=== PATIENT | female | born 1990 ===

== ENCOUNTER 2023-06-26 12:55 | Emergency (ER) | payer SELFPAY ==
[2023-06-26 12:58] VITALS: BP 130/79; BMI 18.6
[2023-06-26 13:27] LABS: Urine Albumin Negative (Neg - Trace); Urine Bilirubin Negative (Negative); Urine Character Clear (Clear); Urine Color Yellow; Urine Glucose Negative (Negative); Urine Ketone Negative (Negative); Urine Leukocyte Trace (Negative); Urine Nitrite Negative (Negative); Urine Occult Blood Negative (Negative); Urine Urobilinogen Negative (Neg - 1+)
[2023-06-26 13:33] LABS: % Eosinophils 3.1 % (0-6); % Immature Granulocytes 0.2 % (0-0.5); % Monocytes 11.5 % (1.7-9.3); % Neutrophils 67.2 % (42.2-75.2); Absolute Basophils 0.1 10^3/uL (0-0.2); Absolute Eosinophils 0.2 10^3/uL (0-0.7); Absolute Lymphocytes 0.8 10^3/uL (1.2-3.4); Absolute Monocytes 0.6 10^3/uL (0.1-0.6); Absolute Neutrophils 3.3 10^3/uL (1.4-6.5); Hematocrit 37.2 % (37.0-47.0); Hemoglobin 12.5 g/dL (12.0-16.0); Mean Corp Hgb Conc. 33.6 g/dL (33.0-37.0); Mean Corpuscular Hgb 29.1 pg (27.0-31.0); Mean Corpuscular Volume 86.5 fL (81.0-99.0); Mean Platelet Volume 9.4 fL (7.4-10.4); Nucleated Red Blood Cells % 0 %; Platelet Count 256 10^3/uL (130-400); Red Cell Dist. Width 12.1 % (11.5-14.5); White Blood Cell Count 4.9 10^3/uL (4.8-10.8)
[2023-06-26 13:34] LABS: Urine Squamous Cell >30 /LPF (Few)
[2023-06-26 13:35] LABS: Urine Bacteria Few (Negative); Urine Red Blood Cell 0-2 /HPF (0-2)
[2023-06-26 13:48] LABS: HCG, Serum Qualitative Screen Negative
[2023-06-26 14:00] LABS: ALT (SGPT) 25 U/L (0-35); AST (SGOT) 31 U/L (14-36); Albumin 3.9 g/dl (3.5-5.0); Alkaline Phosphatase 92 U/L (38-126); Blood Urea Nitrogen 13 mg/dl (7-17); Calcium 8.7 mg/dl (8.4-10.2); Carbon Dioxide 24 mmol/L (22-30); Chloride 103 mmol/L (98-107); Estimated Creatinine Clearance 119 ml/min; Glucose 94 mg/dl (70-99); Lipase 84 U/L (23-300); Potassium 4.2 mmol/L (3.5-5.1); Sodium 133 mmol/L (135-145); Total Bilirubin 0.8 mg/dl (0.2-1.3); Total Protein 6.6 g/dl (6.3-8.2); eGFR > 60.00
--- NOTE | 2023-06-26 14:36 | ED.GENMED ---
History of Present Illness
General
Chief Complaint: Abdominal Symptoms
Time Seen by Provider: 06/26/23 14:22
Travel History
Have you had any contact with someone who has COVID-19?: No
Do you have any symptoms of coronavirus? Fever > 100 degrees, chills, cough, shortness of breath, sore throat, loss of taste or smell, muscle aches, or headache?: No
History of Present Illness
History of Present Illness:
Patient is a 32-year-old female with past medical history of pelvic floor dysfunction, IBS, anxiety, and depression, here today for evaluation of several months of intermittent episodes of abdominal discomfort. She reports worsening pain more
recently. Pain is lower in nature specifically around the groin. She also endorses enlarged lymph nodes in her groin and has been constipated over the past few days. She did have a small bowel movement earlier today. The patient does report a
history of IBS but she is not typically constipated where she is not able to have a bowel movement. Patient also reports nonspecific symptoms over the past couple of months to years including extreme fatigue, canker sores in her mouth, insomnia,
and joint pain. She reports she was following with a nurse practitioner previously and she was being evaluated for lupus and other rheumatological conditions. Patient reports her clinician left and she is currently looking for a primary care
provider and proj engineer. The patient also reports a longstanding history of inflammatory bowel conditions in her family but she denies being diagnosed with a specific condition herself. No recent colonoscopy. She does not currently follow
with GI.
Past History
Past History
ED Past Medical History: Psychiatric
ED Past Surgical History: Orthopedic
Patient has exhibited threatening behavior?: No
PSI?: No
Social History
Tobacco: Vaping
Alcohol: Occasional
Drug: None
Personal: Single
Living: alone
Employment: Employed
Review of Systems
Review of Systems
All Other Systems: ROS reviewed and negative except as documented in HPI and ROS
Phy Exam
Physical Exam
Physical Exam:
GENERAL: Alert , in no apparent distress
EYE: pupils equal and reactive
NECK: Supple, no significant adenopathy.
ENT: o/p clr, mmm. Small canker sore along the inside of the patient's lower lip
CARDIAC: Regular rate and rhythm .
LUNGS: Clear breath sounds bilaterally, no acute respiratory distress, no wheezes/rales/rhonchi
ABDOMEN: Soft, mild tenderness in the right lower quadrant upon initial palpation, however, on repeat palpitation the tenderness is not present, no r/g, no cvat; there are small scattered lymph nodes noted along the bilateral inguinal regions
NEUROLOGICAL: Alert and oriented, no focal neuro deficits
SKIN: Warm and dry, skin intact.
MUSCULOSKELETAL: No edema, well perfused.
PSYCH: Normal and appropriate interaction.
Course
Orders/Labs/Results
Orders:
Orders
06/26/23 13:04
Test Result ONCE
06/26/23 13:14
Complete Blood Count/With Diff Urgent
Comprehensive Metabolic Panel Urgent
HCG, Serum Qualitative Screen Urgent
Lipase Urgent
06/26/23 13:19
Urinalysis Reflex To Culture Urgent
Date Specimen was Collected: 06/26/23
Time Specimen was Collected: 13:04
Urine Microscopic Reflex Cult Urgent
06/26/23 13:47
Electrocardiogram (*1) Stat
Comment: ALREADY DONE
06/26/23 14:34
CT Abd/pel W Iv And Oral Contr Urgent
Comment:
Reason For Exam: lower abd pain, lack of bowel movements
Iohexol [Omnipaque] See Protocol PO NOW STA
Abnormal Lab Results
06/26/23 06/26/23
13:14 13:19
Absolute Lymphs (auto) 0.8 L 10^3/uL
(1.2-3.4)
Lymphocytes % 17.0 L %
(20.5-51.1)
Monocytes % 11.5 H %
(1.7-9.3)
Sodium 133 L mmol/L
(135-145)
Leukocyte Esterase Rfl Trace A
(Negative)
Urine Bacteria (Reflex) Few A
(Negative)
06/26/23 13:14
06/26/23 13:14
Vital Signs
Initial and Last Documented VS:
Initial Vital Signs
Temp Pulse Resp BP Pulse Ox
97.8 F 109 20 130/79 100
06/26/23 12:58 06/26/23 12:58 06/26/23 12:58 06/26/23 12:58 06/26/23 12:58
Last Documented Vital Signs
Temp Pulse Resp BP Pulse Ox
98.3 F 92 20 125/88 98
06/26/23 19:47 06/26/23 19:47 06/26/23 19:47 06/26/23 19:47 06/26/23 19:47
MDM/Problems Addressed
Differential Diagnosis Includes:
Patient is a 32-year-old female with past medical history of pelvic floor dysfunction, IBS, anxiety, and depression, here today for evaluation of several months of intermittent episodes of abdominal discomfort associated with worsening symptoms more
recently including worsening pain and constipation. Patient presents here today as she is concerned for a bowel obstruction. No prior abdominal surgeries. Overall, patient appears very well. Physical examination described above. We will obtain
screening labs, urinalysis, urine test, and CT of the abdomen and pelvis with IV and oral contrast. NPO.
06/26/2023 20:10: Screening labs grossly within normal limits aside from mild hyponatremia with a sodium of 133. CT scan of the abdomen and pelvis with IV contrast reveals intussusception in the mid abdomen. No free air. No fluid collection or
abscess. There is also a large amount of stool throughout the colon consistent with constipation. Case was discussed with general surgery, Dr. Alonzo, who feels findings are incidental from normal peristalsis. No surgical intervention
recommended. They recommended discussion with GI. Case was discussed with gastroenterology, Dr. Sarkar, who reviewed history. GI states they can evaluate patient in the morning and to keep her n.p.o. I discussed with patient at bedside
recommendations for being admitted to the hospital and close monitoring of her symptoms. Patient declined and did not want to be admitted to the hospital. Risks discussed in full detail. Patient would prefer to monitor her symptoms and follow-up
closely with her doctor and GI. Patient will be discharged at this time with recommendations to closely follow-up. She was provided with very strict return precautions for worsening symptoms. All questions answered. Stable for discharge.
Risks/potential complications discussed in full detail and patient voiced understanding.
*Critical Care Note
Total Time (30-74mins, 75-104mins- exclusive of procedures): Not Applicable
ED Attending Note
-
Portions of this chart may have been created with voice recognition software.� Occasional wrong word or��sound alike� substitutions may have occurred due to the inherent limitations of voice recognition software.
Discharge Plan
Departure
Patient Disposition: Home (Routine Discharge)
Date of Disposition: 06/26/23
Time of Disposition: 19:33
Patient with high blood pressure during this ER visit?: No
Condition: Good
Covid-19: Not Applicable
Discharge Problem:
Abdominal pain, Colonic intussusception, Constipation, Lymphadenopathy
Instructions: Intussusception (DC), Abdominal Pain
Prescriptions:
New
senna 8.6 mg capsule
17.2 mg PO DAILY 7 Days Qty: 14 0RF
docusate calcium 240 mg capsule
240 mg PO DAILY 7 Days Qty: 7 0RF
No Action
amoxicillin 500 MG capsule
500 mg PO BID Qty: 20 0RF
methylprednisolone [Medrol (Elvis)] 4 MG tablets,dose pack
4 tab PO . DIRECT Qty: 1 0RF
Referrals:
Yuli Sarkar MD [Active] - Follow up in 5-7 days
Domenic Alonzo MD [Active] - Follow up in 5-7 days
Arvin Beltran MD [Family Provider] - Follow up in 5-7 days
Activity Restrictions/Additional Instructions:
You were seen today for evaluation of abdominal discomfort.
We performed a CAT scan of your abdomen and pelvis which reveals the following:
1. � Intussusception in the mid abdomen. No free air. No fluid collection or abscess.
2. � The examination is severely limited due to the patient's lack of intraperitoneal fat
3. � Large amount stool throughout the colon consistent with constipation. Appendix not visualized.
We discussed your case with general surgery and gastroenterology and recommended admission to the hospital but you declined.
Monitor your symptoms and closely follow-up with your family doctor, general surgery, and gastroenterology as an outpatient.
Return for any new, worsening, or concerning symptoms.
Interventions
Interventions:
*Risk Screen - Suicide Last Done: 06/26/23 12:58
*Neglect/Abuse Screening Last Done: 06/26/23 12:58
ED- Fall Risk Assessment Last Done: 06/26/23 19:47
*ED COVID-19 Vaccine History Last Done: 06/26/23 12:58
RV-Ytdrdz-Zuiikfveux Assessment Last Done: 06/26/23 19:47
Discharge Date and Time
Print Language: MOHAWK
[2023-06-26] MEDS: OMNIPAQUE 50 ML PO (14:45)
[2023-06-26 18:14] VITALS: BP 117/84
[2023-06-26 19:47] VITALS: BP 125/88
== END 2023-06-26 19:50 | disposition home or self-care (01) ==
LOC: EMR 12:55
PROVIDERS: Emergency Medicine; EMERGENCY PHYSICIAN Emergency Medicine; FAMILY PHYSICIAN Internal Medicine
DX: R10.30 Lower abdominal pain, unspecified (principal); K56.1 Intussusception; K59.00 Constipation, unspecified; R59.1 Generalized enlarged lymph nodes; F17.290 Nicotine dependence, other tobacco product, uncomplicated; K58.9 Irritable bowel syndrome, unspecified
CPT/HCPCS: 99285; 74177; 80053; 81003; 81015; 83690; 84703; 85025; 93005; Q9967

== ENCOUNTER → 2023-07-16 06:25 | Day surgery (SDC) | payer SELFPAY | LOC: GI 06:25 | PROVIDERS: ATTENDING PHYSICIAN Internal Medicine Gastroenterology; FAMILY PHYSICIAN Nurse Practitioner | DX: D12.0 Benign neoplasm of cecum (principal); R19.4 Change in bowel habit | CPT/HCPCS: 45385; 88305 ==

== ENCOUNTER 2023-07-27 20:12 | Emergency (ER) | payer SELFPAY ==
[2023-07-27 20:14] VITALS: BP 136/95
[2023-07-27 21:09] VITALS: BMI 19.2
[2023-07-27 22:28] VITALS: BP 122/88
--- NOTE | 2023-07-27 22:28 | ED.SKININJ ---
HPI-Injury
General
Chief Complaint: Ear Problem
Source: patient
Exam Limitations: none
Time Seen by Provider: 07/27/23 20:30
Nursing documentation reviewed up to this point in time: agreed with
Travel History
Have you had any contact with someone who has COVID-19?: No
Do you have any symptoms of coronavirus? Fever > 100 degrees, chills, cough, shortness of breath, sore throat, loss of taste or smell, muscle aches, or headache?: No
History of Present Illness-Injury
Is this injury a work related problem?: No
Is pt an associate of [facility]?: No
Initial Injury comments:
Patient to ED for eval of pain and swelling to posterior earlobes bilaterally. States she was evaluated at this week and placed on clindamycin 300mg bid. This is her 3rd day. Notes drainage from both sites. No fever/chills, recent illness.
Brought self to ED for eval.
Past History
Past History
ED Past Medical History: Psychiatric
ED Past Surgical History: Orthopedic
Patient has exhibited threatening behavior?: No
PSI?: No
Social History
Tobacco: Vaping
Alcohol: Occasional
Drug: None
Personal: Single
Living: alone
Employment: Employed
Review of Systems
Review of Systems
Allergies reviewed?: Yes
All Other Systems: ROS reviewed and negative except as documented in HPI and ROS
Constitutional: Reports no symptoms
EENT: Reports no symptoms
Musculoskeletal: Reports no symptoms
Skin: Reports other (skin abscess to left posterior earlobe. Resolved abscess right posterior earlobe)
Neurological: Reports no symptoms
Psychiatric: Reports no symptoms
Skin Exam
Abscess
Left poserior earlobe:
Description of abscess: draining
Surrounding skin:: inflammed at abscess site
other
Other:
Right posterior earlobe without redenss swelling or drainage. Abscess/cellulitis has resolved
Phy Exam
General Physical Exam
General Presentation: well appearing and no apparent distress
General age: appears stated age
General Skin: warm and dry
General Habitus: normal
General Mental: alert
Musculoskeletal Exam
Musculoskeletal Exam: full ROM and neuro vasc intact
Skin Exam
Skin Exam: normal color, warm/dry and no rash
Psychiatric Exam
Psychiatric Exam: normal mood/affect
Course
Orders/Labs/Results
Orders:
Orders
07/27/23 22:24
Wound Culture [Wound/Abscess/Other Culture] Urgent
GIGI Source: Abscess
Specimen Description:
Date Specimen was Collected: 07/27/23
Time Specimen was Collected: :21
Vital Signs
Initial and Last Documented VS:
Initial Vital Signs
Temp Pulse Resp BP Pulse Ox
99.0 F 104 16 136/95 99
07/27/23 20:14 07/27/23 20:14 07/27/23 20:14 07/27/23 20:14 07/27/23 20:14
Last Documented Vital Signs
Temp Pulse Resp BP Pulse Ox
99.0 F 99 16 122/88 97
07/27/23 20:14 07/27/23 22:28 07/27/23 22:28 07/27/23 22:28 07/27/23 22:28
*Critical Care Note
Total Time (30-74mins, 75-104mins- exclusive of procedures): Not Applicable
Update Note
Update Note:
Case discussed with Dr. Dolan who also evaluated this patient. Lef posterior earlobe drained at bedside by dr. Dolan. Will continue clindamycin as prescribed, warm compresses 4-5 times daily. She has an appointment scheduled with
dermatology howver will return to ED for any changes in/worsening of her symptoms.
ED Attending Note
-
Portions of this chart may have been created with voice recognition software.� Occasional wrong word or��sound alike� substitutions may have occurred due to the inherent limitations of voice recognition software.
Discharge Plan
Departure
Patient Disposition: Home (Routine Discharge)
Date of Disposition: 07/27/23
Time of Disposition: 22:14
Patient with high blood pressure during this ER visit?: No
Condition: Good
Covid-19: Not Applicable
Discharge Problem:
Abscess of skin
Instructions: Skin Abscess
Prescriptions:
No Action
Linzess 145 mcg Capsule
145 mcg PO DAILY
clindamycin HCl
1 tab PO BID
Patient Comments:
pt unsure of mg - on day four of 10 day prescription
Referrals:
Jenna Waite CRNP [Family Provider] -
Activity Restrictions/Additional Instructions:
Continue the clindamycin as prescribed. Warm compresses to the back of your ear 15-20 minutes at a time, 4-5 times daily. Return to the emergency department immediately for any changes in/worsening of your symptoms.
Interventions
Interventions:
*Risk Screen - Suicide Last Done: 07/27/23 20:14
*General Assessment Last Done: 07/27/23 20:14
*Neglect/Abuse Screening Last Done: 07/27/23 20:14
*ED COVID-19 Vaccine History Last Done: 07/27/23 21:09
*Nursing Disposition Last Done: 07/27/23 22:28
Discharge Date and Time
Discharge Date/Time: 07/27/23 22:28
Print Language: [place]
== END 2023-07-27 22:28 | disposition home or self-care (01) ==
LOC: EMR 20:12
PROVIDERS: EMERGENCY PHYSICIAN Emergency Medicine; FAMILY PHYSICIAN Nurse Practitioner
DX: H60.02 Abscess of left external ear (principal)
CPT/HCPCS: 99284; 69000; 87070; 87147; 87186; 87205

== ENCOUNTER → 2023-07-29 10:43 | Outpatient (REF) | payer SELFPAY | LOC: WDC 10:43 | PROVIDERS: ATTENDING PHYSICIAN Nurse Practitioner Family; FAMILY PHYSICIAN Nurse Practitioner | DX: N63.10 Unspecified lump in the right breast, unspecified quadrant (principal); N63.31 Unspecified lump in axillary tail of the right breast | CPT/HCPCS: 76642; 77062; 77066 ==

== ENCOUNTER 2023-08-03 14:50 | Emergency (ER) | payer SELFPAY ==
[2023-08-03 14:58] VITALS: BP 115/81
[2023-08-03 17:18] LABS: % Basophils 0.9 % (0-2); % Eosinophils 2.2 % (0-6); % Immature Granulocytes 0.1 % (0-0.5); % Lymphocytes 23.2 % (20.5-51.1); % Monocytes 9.2 % (1.7-9.3); % Neutrophils 64.4 % (42.2-75.2); Absolute Basophils 0.1 10^3/uL (0-0.2); Absolute Eosinophils 0.2 10^3/uL (0-0.7); Absolute Lymphocytes 1.6 10^3/uL (1.2-3.4); Absolute Monocytes 0.6 10^3/uL (0.1-0.6); Absolute Neutrophils 4.3 10^3/uL (1.4-6.5); Hematocrit 37.4 % (37.0-47.0); Hemoglobin 13.5 g/dL (12.0-16.0); Mean Corp Hgb Conc. 36.1 g/dL (33.0-37.0); Mean Corpuscular Hgb 29.5 pg (27.0-31.0); Mean Corpuscular Volume 81.7 fL (81.0-99.0); Nucleated Red Blood Cells % 0 %; Platelet Count 294 10^3/uL (130-400); Red Blood Cell Count 4.58 10^6/uL (4.20-5.40); Red Cell Dist. Width 11.9 % (11.5-14.5); White Blood Cell Count 6.7 10^3/uL (4.8-10.8)
[2023-08-03 17:25] LABS: Urine Albumin Negative (Neg - Trace); Urine Bilirubin Negative (Negative); Urine Character Clear (Clear); Urine Color Straw; Urine Glucose Negative (Negative); Urine Ketone Negative (Negative); Urine Leukocyte 2+ (Negative); Urine Nitrite Negative (Negative); Urine Occult Blood Negative (Negative); Urine Urobilinogen Negative (Neg - 1+)
[2023-08-03 17:28] LABS: HCG, Serum Qualitative Screen Negative
[2023-08-03 17:30] LABS: Amphetamines Positive (Negative); Barbiturates Negative (Negative); Benzodiazepines Negative (Negative); Buprenorphine Negative (Negative); Cocaine Negative (Negative); Marijuana Negative (Negative); Methadone Negative (Negative); Methamphetamines Positive (Negative); Opiates Negative (Negative); Phencyclidine Negative (Negative); Tricyclic Antidepressants Negative (Negative)
[2023-08-03 17:32] LABS: COVID-19 Antigen Negative (Negative)
[2023-08-03 17:33] LABS: Urine Bacteria Few (Negative); Urine Red Blood Cell 0-2 /HPF (0-2); Urine Squamous Cell >20 /LPF (Few)
[2023-08-03 17:38] LABS: ALT (SGPT) 27 U/L (0-35); AST (SGOT) 32 U/L (14-36); Albumin 4.8 g/dl (3.5-5.0); Alkaline Phosphatase 93 U/L (38-126); Blood Urea Nitrogen 14 mg/dl (7-17); Calcium 9.8 mg/dl (8.4-10.2); Carbon Dioxide 28 mmol/L (22-30); Chloride 103 mmol/L (98-107); Glucose 99 mg/dl (70-99); Potassium 3.9 mmol/L (3.5-5.1); Sodium 137 mmol/L (135-145); Total Bilirubin 1.1 mg/dl (0.2-1.3); Total Protein 7.9 g/dl (6.3-8.2); eGFR > 60.00
[2023-08-03 17:39] LABS: Alcohol None Detected
[2023-08-03 17:50] LABS: Fentanyl, Urine Negative (Negative)
[2023-08-03 19:31] VITALS: BP 112/79
[2023-08-03 20:13] LABS: TSH Reflex To Free T4 3.57 uIU/ml (0.47-4.68)
--- NOTE | 2023-08-03 21:35 | ED.GENMED ---
History of Present Illness
General
Chief Complaint: Skin Problem
Source: patient and family
Exam Limitations: none
Time Seen by Provider: 08/03/23 15:54
Nursing documentation reviewed up to this point in time: agreed with
Travel History
Have you had any contact with someone who has COVID-19?: No
Do you have any symptoms of coronavirus? Fever > 100 degrees, chills, cough, shortness of breath, sore throat, loss of taste or smell, muscle aches, or headache?: No
History of Present Illness
History of Present Illness:
see dmdm
Past History
Past History
ED Past Medical History: Psychiatric
ED Past Surgical History: Orthopedic
Patient has exhibited threatening behavior?: No
PSI?: No
Social History
Tobacco: Vaping
Alcohol: Occasional
Drug: None
Personal: Single
Living: alone
Employment: Employed
Review of Systems
Review of Systems
Allergies reviewed?: Yes
All Other Systems: Not applicable
Phy Exam
Physical Exam
Physical Exam:
GENERAL: Alert , malnourished, thin, sunken cheek bones
HEAD: NCAT
EYE: pupils equal and reactive, no nystagmus, no photophobia
NECK: Supple,full rom, nontender
ENT: o/p clr, mmm.
CARDIAC: Regular rate and rhythm . no edema
LUNGS: Clear breath sounds bilaterally, no acute respiratory distress, no wheezes/rales/rhonchi
ABDOMEN: Soft, without focal tenderness, no r/g, no cvat
NEUROLOGICAL: Alert and orientedx 4, cn intact, no facial asymmetry, 5/5 strength in UE/LE, sensation intact, romberg neg, ambulates without assistance, neg pronator drift
SKIN: Warm and dry, skin lesinos, fresh opened scabs, nondraining to arms, back, behind ears are healing
plaques slightly purplish to cheeks; do not appear like erysipelas, or like a malar rash
MUSCULOSKELETAL: No edema, well perfused.
PSYCH: paranoid anxious, not SI
Course
Orders/Labs/Results
Orders:
Orders
08/03/23 16:38
CT Head W/o Iv Contrast Urgent
Comment:
Reason For Exam: head pressure
Test Result ONCE
08/03/23 17:04
Alcohol Urgent
COVID-19 Antigen Urgent
Source: Nasal Swab
Complete Blood Count/With Diff Urgent
Comprehensive Metabolic Panel Urgent
Fentanyl, Urine Urgent
HCG, Serum Qualitative Screen Urgent
TSH Reflex To Free T4 Urgent
Urinalysis Reflex To Culture Urgent
Date Specimen was Collected: 08/03/23
Time Specimen was Collected: 17:02
Urine Drug Abuse Screen Urgent
Date Specimen was Collected: 08/03/23
Time Specimen was Collected: 17:02
Urine Microscopic Reflex Cult Urgent
Blood Culture Q30M
GIGI Source: Blood/Venous
Specimen Description:
Blood Culture Q30M
GIGI Source: Blood/Venous
Specimen Description:
Urine Culture Urgent
GIGI Source: U
Specimen Description:
Date Specimen was Collected: 08/03/23
Time Specimen was Collected: 17:02
Abnormal Lab Results
08/03/23
17:04
Leukocyte Esterase Rfl 2+ A
(Negative)
Urine Bacteria (Reflex) Few A
(Negative)
Ur Amphetamines Screen Positive H
(Negative)
U Methamphetamines Scrn Positive H
(Negative)
08/03/23 17:04
08/03/23 17:04
Vital Signs
Initial and Last Documented VS:
Initial Vital Signs
Temp Pulse Resp BP Pulse Ox
98.6 F 111 18 115/81 99
08/03/23 14:58 08/03/23 14:58 08/03/23 14:58 08/03/23 14:58 08/03/23 14:58
Last Documented Vital Signs
Temp Pulse Resp BP Pulse Ox
97.8 F 98 20 112/79 100
08/03/23 19:31 08/03/23 19:31 08/03/23 19:31 08/03/23 19:31 08/03/23 19:31
MDM/Problems Addressed
MDM/Problems Addressed:
32 y/o F with multiple complaints
h/o aniety, depression, intussusceptino s/p resection of SB tumor
here with rash on her face that she is ocncerned about
she apparently has habit of picking her skin, has scabs that sometimes get infected
she had a cyst on the back of her righ tear that was treated with abx at urgent care with doxycycline and then she got one on her left ear that she saw dmeratologist for, who did a biopsys and I&D and put her on clinda
she came here last week and it was cultured showing MSSA senisitve to clinda
she has had healing of these areas but says that all along, for at least a week she has a pressure in her head, halle with bending over, and nasal congestion and today she woke up with rash on her face, b/l cheeks that is red and not itchy or painful
she also reoprts she is in the process of getting w/u for possible autoimmune doseaese, and the rhuematologist thinks maybe she oculd have lupus becuase of her strange rashes
she has not had any results yet
she denies sudden worst headache of life, fever, chills, vomiting, diarrhea, cp,sob, weakness, nubmenss
she does feel tired a lot
lives alone
adamantly denies drug abuse
specifically when i asked about methamphetamines because of her picking habits and her sleep issues, she denies
she is here with sisters, they are very concerned about her
they beileve she is using drugs
pt admits she has lost weight but she isn't sure why
she has nothoughts of self harm
on exam pt has mlutples stages of skin lesions that appaer to be fro picking, some with crusts, none appear infected
on her cheeks she has eryhetmatous plaques, do not really appear c/w butterly rash, they appear like deramtitis
she reports that she used a roller on her face last night and applied a cream
she is emaciated, sunken cheek bones,
she seems anxious, nearly paranoid
her vitals improved from arrival
she perseverates that her family is speaking to me in private regarding drug abuse
i did confront her about using meth, but based on her physical appearance
she denied.
pt's work up labs were normal other than testing positive for methamphetamines
head ct neg
i spoke with her in private about this finding, she initially still denied, sying that was months ago and only adderall
but ultimately she did admit to some drug use
pt declines b cares
she wants to go home
has f/u with derm and also with rheum
*Critical Care Note
Total Time (30-74mins, 75-104mins- exclusive of procedures): Not Applicable
ED Attending Note
-
Portions of this chart may have been created with voice recognition software.� Occasional wrong word or��sound alike� substitutions may have occurred due to the inherent limitations of voice recognition software.
Discharge Plan
Departure
Patient Disposition: Home (Routine Discharge)
Date of Disposition: 08/03/23
Time of Disposition: 19:03
Patient with high blood pressure during this ER visit?: No
Condition: Fair
Covid-19: Not Applicable
Discharge Problem:
Headache, Rash, skin
Instructions: Skin Rash (DC), Headache, Adult (DC)
Prescriptions:
No Action
clindamycin HCl 300 mg Capsule
300 mg PO Q12H
Patient Comments:
patient belt picker on 07/28/23
Linzess 145 mcg Capsule
145 mcg PO DAILYPRN PRN (Reason: constipation)
cyanocobalamin (vitamin B-12) 1,000 mcg Tablet
1,000 mcg PO DAILY
Theragen Tablet
1 tab PO DAILY
magnesium hydroxide [Milk of Magnesia] 400 mg/5 mL Suspension
2,400 mg PO DAILYPRN PRN (Reason: constipation)
ferrous sulfate 325 mg (65 mg iron) Tablet
325 mg PO DAILY
omega 1-oqn-ygs-fish oil [Fish Oil] 1,000 mg (120 mg-180 mg) Capsule
1 cap PO DAILY
ashwagandha extract 500 mg Capsule
500 mg PO DAILY
Referrals:
Jenna Waite CRNP [Family Provider] - Follow up in 2-3 days
Activity Restrictions/Additional Instructions:
WE ARE NOT SURE THE CAUSE FO RYOUR SYPMTOMS
YOUR BLOOD WORK AND HEAD CT WERE REASSURING THAT YOU DO NOT HAVE A SERIOUS INFECTIOUS PROCESS
YOU HAD NO SIGNS OF SINUS INFECTION ON CAT SCAN
MAKE SURE YOU COMPLETE YOUR ANTIBIOTIC
TAKE TYLNEOL OR MOTRIN FOR PAIN NEEDED
FOLLOW UP WITH THE RECORDS MANAGEMENT ENGINEER AND MOHEL PLANNED FOR FURTHER EVLAUATION
I WOULD ASK THE MOHEL WHAT TO PUT ON THE RASH - WHETHER SHE THINKS STEROIDS WOULD BE HELPFUL OR IF YOU SHOULD DO TOPICAL ANTIBIOTICS.
TRY NOT TO SCRATCH OR PUT NEW CREAMS ON
YOU CAN PUT AQUAPHOR ON YOUR FACE.
RETURN FOR FEVERS, SEVERE PAIN, TROUBLE BREATHING, OR ANY CONCERNS,
WE TESTED FOR BACTERIA IN YOUR BLOOD STREAM, IF YOUR CULTURES ARE POSITIVE WE WILL CALL YOU IN 2 DAYS TO RETURN.
Interventions
Interventions:
*Risk Screen - Suicide Last Done: 08/03/23 15:19
*General Assessment Last Done: 08/03/23 15:19
*Neglect/Abuse Screening Last Done: 08/03/23 15:19
*Nursing Disposition Last Done: 08/03/23 19:31
ED-Skin Assessment Last Done: 08/03/23 15:19
Discharge Date and Time
Discharge Date/Time: 08/03/23 19:35
Print Language: [place]
== END 2023-08-03 19:35 | disposition home or self-care (01) ==
LOC: EMR 14:50
PROVIDERS: Physician Assistant; EMERGENCY PHYSICIAN Emergency Medicine; FAMILY PHYSICIAN Nurse Practitioner
DX: R21 Rash and other nonspecific skin eruption (principal); R53.83 Other fatigue; R63.4 Abnormal weight loss; R51.9 Headache, unspecified; R09.81 Nasal congestion; F17.290 Nicotine dependence, other tobacco product, uncomplicated; F19.90 Other psychoactive substance use, unspecified, uncomplicated; Z11.52 Encounter for screening for COVID-19
CPT/HCPCS: 99284; 70450; 80053; 80306; 80307; 81003; 81015; 82077; 84443; 84703; 85025; 87040; 87086; 87811

== ENCOUNTER 2023-09-29 20:58 | Emergency (ER) | payer SELFPAY ==
[2023-09-29 21:08] VITALS: BP 139/96
[2023-09-29 21:28] LABS: % Basophils 0.9 % (0-2); % Eosinophils 1.3 % (0-6); % Immature Granulocytes 0.2 % (0-0.5); % Lymphocytes 27.4 % (20.5-51.1); % Monocytes 7.5 % (1.7-9.3); % Neutrophils 62.7 % (42.2-75.2); Absolute Basophils 0.1 10^3/uL (0-0.2); Absolute Eosinophils 0.1 10^3/uL (0-0.7); Absolute Lymphocytes 1.5 10^3/uL (1.2-3.4); Absolute Monocytes 0.4 10^3/uL (0.1-0.6); Absolute Neutrophils 3.4 10^3/uL (1.4-6.5); Hemoglobin 12.5 g/dL (12.0-16.0); Mean Corp Hgb Conc. 35.7 g/dL (33.0-37.0); Mean Corpuscular Hgb 29.3 pg (27.0-31.0); Mean Corpuscular Volume 82.2 fL (81.0-99.0); Mean Platelet Volume 8.6 fL (7.4-10.4); Nucleated Red Blood Cells % 0 %; Platelet Count 250 10^3/uL (130-400); Red Blood Cell Count 4.26 10^6/uL (4.20-5.40); Red Cell Dist. Width 11.8 % (11.5-14.5); White Blood Cell Count 5.4 10^3/uL (4.8-10.8)
[2023-09-29 21:45] LABS: ALT (SGPT) 32 U/L (0-35); AST (SGOT) 34 U/L (14-36); Albumin 4.5 g/dl (3.5-5.0); Alkaline Phosphatase 83 U/L (38-126); Blood Urea Nitrogen 14 mg/dl (7-17); Calcium 9.7 mg/dl (8.4-10.2); Carbon Dioxide 24 mmol/L (22-30); Chloride 104 mmol/L (98-107); Glucose 101 mg/dl (70-99); Potassium 3.7 mmol/L (3.5-5.1); Sodium 136 mmol/L (135-145); Total Bilirubin 1.5 mg/dl (0.2-1.3); Total Protein 7.3 g/dl (6.3-8.2); eGFR > 60.00
== END 2023-09-29 22:16 | disposition left against medical advice (07) ==
LOC: EMR 20:58
PROVIDERS: EMERGENCY PHYSICIAN Emergency Medicine
DX: R19.5 Other fecal abnormalities (principal); Z53.21 Procedure and treatment not carried out due to patient leaving prior to being seen by health care provider
CPT/HCPCS: 80053; 85025

== ENCOUNTER → 2023-11-11 06:43 | Day surgery (SDC) | payer SELFPAY | LOC: GI 06:43 | PROVIDERS: ATTENDING PHYSICIAN Internal Medicine Gastroenterology | DX: R12 Heartburn (principal) | CPT/HCPCS: 43235 ==

== ENCOUNTER 2023-11-19 17:16 | Emergency (ER) | payer SELFPAY ==
[2023-11-19 17:18] VITALS: BP 143/84
[2023-11-19 19:18] LABS: % Basophils 0.8 % (0-2); % Eosinophils 0.4 % (0-6); % Immature Granulocytes 0.2 % (0-0.5); % Lymphocytes 14.8 % (20.5-51.1); % Monocytes 16.8 % (1.7-9.3); Absolute Lymphocytes 0.7 10^3/uL (1.2-3.4); Absolute Monocytes 0.8 10^3/uL (0.1-0.6); Absolute Neutrophils 3.3 10^3/uL (1.4-6.5); Hematocrit 38.2 % (37.0-47.0); Hemoglobin 13.2 g/dL (12.0-16.0); Mean Corp Hgb Conc. 34.6 g/dL (33.0-37.0); Mean Corpuscular Hgb 29.2 pg (27.0-31.0); Mean Corpuscular Volume 84.5 fL (81.0-99.0); Mean Platelet Volume 9.1 fL (7.4-10.4); Nucleated Red Blood Cells % 0 %; Platelet Count 189 10^3/uL (130-400); Red Blood Cell Count 4.52 10^6/uL (4.20-5.40)
[2023-11-19 19:39] LABS: COVID-19 Antigen Positive (Negative)
[2023-11-19 19:42] LABS: ALT (SGPT) 20 U/L (0-35); AST (SGOT) 27 U/L (14-36); Albumin 3.9 g/dl (3.5-5.0); Alkaline Phosphatase 78 U/L (38-126); Blood Urea Nitrogen 10 mg/dl (7-17); Calcium 9.4 mg/dl (8.4-10.2); Carbon Dioxide 24 mmol/L (22-30); Chloride 106 mmol/L (98-107); Glucose 100 mg/dl (70-99); Potassium 3.9 mmol/L (3.5-5.1); Sodium 137 mmol/L (135-145); Total Bilirubin 0.8 mg/dl (0.2-1.3); Total Protein 6.5 g/dl (6.3-8.2); eGFR > 60.00
[2023-11-19 19:51] VITALS: BP 125/78
--- NOTE | 2023-11-19 21:03 | ED.GENMED ---
History of Present Illness
General
Chief Complaint: Skin Problem
Source: patient
Exam Limitations: none
Time Seen by Provider: 11/19/23 17:58
Nursing documentation reviewed up to this point in time: agreed with
History of Present Illness
History of Present Illness:
Patient to ED with complaint of fever, nasal congestion, sinus pain, cough. States symptoms started yesterday. Concerned that she is developing skin abscess to both earlobes and this is why she is feeling sick. Brought self to ED for eval.
Past History
Past History
ED Past Medical History: Psychiatric
ED Past Surgical History: Orthopedic
Patient has exhibited threatening behavior?: No
PSI?: No
Social History
Tobacco: Vaping
Alcohol: Occasional
Drug: None
Personal: Single
Living: alone
Employment: Employed
Review of Systems
Review of Systems
Allergies reviewed?: Yes
All Other Systems: ROS reviewed and negative except as documented in HPI and ROS
Constitutional: Reports fever, fatigue and chills
EENT: Reports other (nasal congestion, sinus pressure)
Respiratory: Reports cough
Cardiac: Reports no symptoms
ABD/GI: Reports no symptoms
: Reports no symptoms
Musculoskeletal: Reports no symptoms
Skin: Reports no symptoms
Neurological: Reports weakness
Psychiatric: Reports no symptoms
Phy Exam
General Physical Exam
General Presentation: moderate distress
General age: appears stated age
General Skin: warm and dry
General Habitus: normal
General Mental: alert
ENT Exam
ENT Exam: EOMI, neck supple and normocephalic
Pulmonary Exam
Pulmonary Exam: lungs clear, no respiratory distress and chest non tender
Musculoskeletal Exam
Musculoskeletal Exam: full ROM
Skin Exam
Skin Exam: normal color, warm/dry, no rash and other (No evidence of infection or skin abscess to either earlobe)
Psychiatric Exam
Psychiatric Exam: normal mood/affect
Course
Orders/Labs/Results
Orders:
Orders
11/19/23 18:30
CT Sinuses W/o Iv Contrast Urgent
Comment:
Reason For Exam: pain, dizziness
CR Chest - 2 Views Urgent
Comment:
Reason For Exam: cough
11/19/23 19:04
COVID-19 Antigen Urgent
Source: Nasal Swab
Complete Blood Count/With Diff Urgent
Comprehensive Metabolic Panel Urgent
Abnormal Lab Results
11/19/23
19:04
Absolute Lymphs (auto) 0.7 L 10^3/uL
(1.2-3.4)
Absolute Monos (auto) 0.8 H 10^3/uL
(0.1-0.6)
Lymphocytes % 14.8 L %
(20.5-51.1)
Monocytes % 16.8 H %
(1.7-9.3)
Glucose 100 H mg/dl
(70-99)
SARS-CoV-2 Antigen Positive A
(Negative)
11/19/23 19:04
11/19/23 19:04
Vital Signs
Initial and Last Documented VS:
Initial Vital Signs
Temp Pulse Resp BP Pulse Ox
99.5 F 93 16 143/84 98
11/19/23 17:18 11/19/23 17:18 11/19/23 17:18 11/19/23 17:18 11/19/23 17:18
Last Documented Vital Signs
Temp Pulse Resp BP Pulse Ox
99 F 84 20 125/78 97
11/19/23 19:51 11/19/23 19:51 11/19/23 20:00 11/19/23 19:51 11/19/23 19:51
*Radiology
Radiology exam reviewed: radiology read reviewed
*Pulse Oximetry
Patient hypoxic: no
*Critical Care Note
Total Time (30-74mins, 75-104mins- exclusive of procedures): Not Applicable
Update Note
Update Note:
COVID pos. She is discharged home, will follow up with PCP. Given instructions on s/s to return to ED and she is agreeable to plan.
ED Attending Note
-
Portions of this chart may have been created with voice recognition software.� Occasional wrong word or��sound alike� substitutions may have occurred due to the inherent limitations of voice recognition software.
Discharge Plan
Departure
Patient Disposition: Home (Routine Discharge)
Date of Disposition: 11/19/23
Time of Disposition: 20:18
Patient with high blood pressure during this ER visit?: No
Condition: Good
Covid-19: Not Applicable
Discharge Problem:
COVID-19
Instructions: COVID-19 ED
Prescriptions:
New
azithromycin 250 mg tablet
250 mg PO DAILY Qty: 6 0RF
Rx Instructions:
Take 2 tablets day 1, then 1 tablet daily for 4 days.
fluticasone propionate [Flonase Allergy Relief] 50 mcg/actuation spray,suspension
2 spray intranasal DAILY Qty: 16 0RF
No Action
clindamycin HCl 300 mg Capsule
300 mg PO Q12H
Patient Comments:
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
Linzess 145 mcg Capsule
145 mcg PO DAILYPRN PRN (Reason: constipation)
cyanocobalamin (vitamin B-12) 1,000 mcg Tablet
1,000 mcg PO DAILY
Theragen Tablet
1 tab PO DAILY
magnesium hydroxide [Milk of Magnesia] 400 mg/5 mL Suspension
2,400 mg PO DAILYPRN PRN (Reason: constipation)
ferrous sulfate 325 mg (65 mg iron) Tablet
325 mg PO DAILY
omega 8-jjh-adv-fish oil [Fish Oil] 1,000 mg (120 mg-180 mg) Capsule
1 cap PO DAILY
ashwagandha extract 500 mg Capsule
500 mg PO DAILY
Referrals:
Jenna Waite CRNP [Family Provider] - Next open appointment
Stand Alone Forms: Return to Work
Interventions
Interventions:
*Risk Screen - Suicide Last Done: 11/19/23 17:18
*General Assessment Last Done: 11/19/23 19:22
*Neglect/Abuse Screening Last Done: 11/19/23 17:18
ED- Fall Risk Assessment Last Done: 11/19/23 19:22
*ED COVID-19 Vaccine History Last Done: 11/19/23 19:22
*Nursing Disposition Last Done: 11/19/23 20:26
ED-Skin Assessment Last Done: 11/19/23 19:22
Discharge Date and Time
Discharge Date/Time: 11/19/23 20:31
Print Language: LAO
== END 2023-11-19 20:31 | disposition home or self-care (01) ==
LOC: EMR 17:16
PROVIDERS: Nurse Practitioner; EMERGENCY PHYSICIAN Emergency Medicine; FAMILY PHYSICIAN Nurse Practitioner
DX: U07.1 COVID-19 (principal); R09.81 Nasal congestion; F17.290 Nicotine dependence, other tobacco product, uncomplicated
CPT/HCPCS: 99284; 70486; 71046; 80053; 85025; 87811

== ENCOUNTER 2023-12-25 16:47 | Emergency (ER) | payer SELFPAY ==
[2023-12-25 16:48] VITALS: BP 111/81
[2023-12-25 17:10] LABS: % Basophils 0.8 % (0-2); % Eosinophils 0.8 % (0-6); % Immature Granulocytes 0.3 % (0-0.5); % Lymphocytes 12.8 % (20.5-51.1); % Neutrophils 74.3 % (42.2-75.2); Absolute Basophils 0.1 10^3/uL (0-0.2); Absolute Eosinophils 0.1 10^3/uL (0-0.7); Absolute Monocytes 0.9 10^3/uL (0.1-0.6); Hematocrit 36.1 % (37.0-47.0); Hemoglobin 12.5 g/dL (12.0-16.0); Mean Corp Hgb Conc. 34.6 g/dL (33.0-37.0); Mean Corpuscular Hgb 29.2 pg (27.0-31.0); Mean Corpuscular Volume 84.3 fL (81.0-99.0); Mean Platelet Volume 8.8 fL (7.4-10.4); Nucleated Red Blood Cells % 0 %; Platelet Count 269 10^3/uL (130-400); Red Blood Cell Count 4.28 10^6/uL (4.20-5.40); Red Cell Dist. Width 12.1 % (11.5-14.5)
[2023-12-25 17:25] LABS: ALT (SGPT) 25 U/L (0-35); AST (SGOT) 33 U/L (14-36); Albumin 4.2 g/dl (3.5-5.0); Alkaline Phosphatase 105 U/L (38-126); Blood Urea Nitrogen 9 mg/dl (7-17); Calcium 9.2 mg/dl (8.4-10.2); Carbon Dioxide 21 mmol/L (22-30); Chloride 104 mmol/L (98-107); Glucose 98 mg/dl (70-99); Potassium 3.7 mmol/L (3.5-5.1); Sodium 140 mmol/L (135-145); Total Bilirubin 1.2 mg/dl (0.2-1.3); eGFR > 60.00
[2023-12-25 18:55] VITALS: BP 113/77
[2023-12-25 19:00] VITALS: BP 109/68
--- NOTE | 2023-12-25 19:46 | ED.GENMED ---
History of Present Illness
<Ayan Valdivia PA-C - Last Filed: 12/25/23 23:04>
General
Chief Complaint: Swelling
Time Seen by Provider: 12/25/23 18:14
History of Present Illness
History of Present Illness:
33-year-old female presents to the emergency department for evaluation of bilateral foot edema. Patient has had this ongoing for the past several months but reports over the past 2 days it has become profoundly worse. She also reports chills and
fatigue. She notes a myriad of complaints that have been for the past several for which she has yet to find a fall diagnosis. This includes his skin lesions that she feels may be parasitic in nature, also has a recent diagnosis of intussusception.
Past History
<Ayan Valdivia PA-C - Last Filed: 12/25/23 23:04>
Past History
ED Past Medical History: Psychiatric
ED Past Surgical History: Orthopedic
Patient has exhibited threatening behavior?: No
PSI?: No
Social History
Tobacco: Vaping
Alcohol: Occasional
Drug: None
Personal: Single
Living: alone
Employment: Employed
Review of Systems
<Ayan Valdivia PA-C - Last Filed: 12/25/23 23:04>
Review of Systems
Allergies reviewed?: Yes
All Other Systems: ROS reviewed and negative except as documented in HPI and ROS
Phy Exam
<Ayan Valdivia PA-C - Last Filed: 12/25/23 23:04>
Physical Exam
Physical Exam:
GEN: Well appearing, NAD, WDWN
HEENT: Oral mucosa moist, no scleral icterus
Cardiac: Regular rate
Lung: No respiratory distress, no tachypnea
MSK: No gross deformity or injuries. Diffuse swelling and erythema of bilateral feet extending to the ankles with no lower leg edema, dorsalis pedis pulses 2+ bilaterally
Skin: Good color, no pallor or jaundice, no rashes
Neuro: AO x3, moves all extremities freely
Psych: Calm, cooperative
Course
<Ayan Valdivia PA-C - Last Filed: 12/25/23 23:04>
Orders/Labs/Results
Orders:
Orders
12/25/23 17:02
CMP [Comprehensive Metabolic Panel] Urgent
Complete Blood Count/With Diff Urgent
Abnormal Lab Results
12/25/23
17:02
Hct 36.1 L %
(37.0-47.0)
Absolute Lymphs (auto) 1.0 L 10^3/uL
(1.2-3.4)
Absolute Monos (auto) 0.9 H 10^3/uL
(0.1-0.6)
Lymphocytes % 12.8 L %
(20.5-51.1)
Monocytes % 11.0 H %
(1.7-9.3)
Carbon Dioxide 21 L mmol/L
(22-30)
12/25/23 17:02
12/25/23 17:02
Vital Signs
Initial and Last Documented VS:
Initial Vital Signs
Temp Pulse Resp BP Pulse Ox
98.5 F 106 18 111/81 100
12/25/23 16:48 12/25/23 16:48 12/25/23 16:48 12/25/23 16:48 12/25/23 16:48
Last Documented Vital Signs
Temp Pulse Resp BP Pulse Ox
98.5 F 98 18 112/77 100
12/25/23 16:48 12/25/23 20:00 12/25/23 20:15 12/25/23 20:00 12/25/23 16:48
<David Dolan DO - Last Filed: 12/25/23 23:43>
Orders/Labs/Results
Orders:
Orders
12/25/23 17:02
CMP [Comprehensive Metabolic Panel] Urgent
Complete Blood Count/With Diff Urgent
Abnormal Lab Results
12/25/23
17:02
Hct 36.1 L %
(37.0-47.0)
Absolute Lymphs (auto) 1.0 L 10^3/uL
(1.2-3.4)
Absolute Monos (auto) 0.9 H 10^3/uL
(0.1-0.6)
Lymphocytes % 12.8 L %
(20.5-51.1)
Monocytes % 11.0 H %
(1.7-9.3)
Carbon Dioxide 21 L mmol/L
(22-30)
12/25/23 17:02
12/25/23 17:02
Vital Signs
Initial and Last Documented VS:
Initial Vital Signs
Temp Pulse Resp BP Pulse Ox
98.5 F 106 18 111/81 100
12/25/23 16:48 12/25/23 16:48 12/25/23 16:48 12/25/23 16:48 12/25/23 16:48
Last Documented Vital Signs
Temp Pulse Resp BP Pulse Ox
98.5 F 98 18 112/77 100
12/25/23 16:48 12/25/23 20:00 12/25/23 20:15 12/25/23 20:00 12/25/23 16:48
<Ayan Valdivia PA-C - Last Filed: 12/25/23 23:04>
MDM/Problems Addressed
MDM/Problems Addressed:
Because of persistent symptoms is unclear. No fever cellulitic stone. No evidence of vascular disorder. Will start broad-spectrum antibiotics and try a course of steroids she likely has some type of autoimmune condition underlying she is
following with rheumatology for this
<Ayan Valdivia PA-C - Last Filed: 12/25/23 23:04>
*Critical Care Note
Total Time (30-74mins, 75-104mins- exclusive of procedures): Not Applicable
ED Attending Note
<Ayan Valdivia PA-C - Last Filed: 12/25/23 23:04>
-
Portions of this chart may have been created with voice recognition software.� Occasional wrong word or��sound alike� substitutions may have occurred due to the inherent limitations of voice recognition software.
<David Dolan DO - Last Filed: 12/25/23 23:43>
ED Attending Note
Patient seen and examined by attending physician: Yes
I performed the substantive portion of visit, reviewed & personally made and approve the management plan that is documented in note by myself or DOMO.: Yes
ED Attending Note:
Patient is a 33-year-old female although she appears older than stated age with a plethora of seemingly unrelated complaints that have been going on for weeks to months and presents with swelling and redness of bilateral feet and from what she says
there were black dots coming from her right foot. Patient did show me a video of it and it did appear that there were black dots coming from pores in her skin. Patient denies fever or chills. Patient does complain of painful feet and difficulty
walking and weightbearing. Patient has seen ID and is going to see rheumatology for possibility of an autoimmune disease. Patient's head is normocephalic with supple neck and no adenopathy. Patient has minimal inguinal adenopathy bilaterally from
just proximal to the bilateral ankles is erythema with edema of the feet right greater than left. No apparent skin breakdown between toes or on the feet. I do believe she probably has an autoimmune disorder. Will treat with antibiotics and
steroids.
Discharge Plan
Departure
Patient Disposition: Home (Routine Discharge)
Date of Disposition: 12/25/23
Time of Disposition: 20:03
Patient with high blood pressure during this ER visit?: No
Discharge Problem:
Edema of both feet, Cellulitis of both feet
Instructions: Dependent Edema (DC)
Prescriptions:
New
doxycycline hyclate 100 mg tablet
100 mg PO BID 7 Days Qty: 14 0RF
cephalexin 500 mg capsule
500 mg PO Q8H 7 Days Qty: 21 0RF
methylprednisolone [Medrol (Elvis)] 4 mg tablets,dose pack
See Rx Instructions .ROUTE .COMPLEX Qty: 21 0RF
Rx Instructions:
orally per package directions
No Action
clindamycin HCl 300 mg Capsule
300 mg PO Q12H
Patient Comments:
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
Linzess 145 mcg Capsule
145 mcg PO DAILYPRN PRN (Reason: constipation)
cyanocobalamin (vitamin B-12) 1,000 mcg Tablet
1,000 mcg PO DAILY
Theragen Tablet
1 tab PO DAILY
magnesium hydroxide [Milk of Magnesia] 400 mg/5 mL Suspension
2,400 mg PO DAILYPRN PRN (Reason: constipation)
ferrous sulfate 325 mg (65 mg iron) Tablet
325 mg PO DAILY
omega 4-gse-lmv-fish oil [Fish Oil] 1,000 mg (120 mg-180 mg) Capsule
1 cap PO DAILY
ashwagandha extract 500 mg Capsule
500 mg PO DAILY
azithromycin 250 mg tablet
250 mg PO DAILY Qty: 6 0RF
Rx Instructions:
Take 2 tablets day 1, then 1 tablet daily for 4 days.
fluticasone propionate [Flonase Allergy Relief] 50 mcg/actuation spray,suspension
2 spray intranasal DAILY Qty: 16 0RF
Referrals:
Jenna Waite CRNP [Family Provider] -
Activity Restrictions/Additional Instructions:
Follow up with your infectious disease specialist
Interventions
Interventions:
*Risk Screen - Suicide Last Done: 12/25/23 20:18
*General Assessment Last Done: 12/25/23 20:18
*Neglect/Abuse Screening Last Done: 12/25/23 20:18
ED- Fall Risk Assessment Last Done: 12/25/23 20:18
*ED COVID-19 Vaccine History Last Done: 12/25/23 20:18
*Nursing Disposition Last Done: 12/25/23 20:18
ED- Cardiac Assessment Last Done: 12/25/23 20:15
ED- Pulmonary Assessment Last Done: 12/25/23 20:15
ED-Skin Assessment Last Done: 12/25/23 20:15
Discharge Date and Time
Discharge Date/Time: 12/25/23 20:19
Print Language: INDIAN
[2023-12-25 20:00] VITALS: BP 112/77
== END 2023-12-25 20:19 | disposition home or self-care (01) ==
LOC: EMR 16:47
PROVIDERS: Physician Assistant; EMERGENCY PHYSICIAN Emergency Medicine; FAMILY PHYSICIAN Nurse Practitioner
DX: L03.116 Cellulitis of left lower limb (principal); L03.115 Cellulitis of right lower limb; F17.290 Nicotine dependence, other tobacco product, uncomplicated
CPT/HCPCS: 99283; 80053; 85025

== ENCOUNTER 2023-12-31 05:53 | Emergency (ER) | payer SELFPAY ==
[2023-12-31 05:56] VITALS: BP 119/84
[2023-12-31 08:00] VITALS: BP 103/68
--- NOTE | 2023-12-31 08:00 | ED.SKININJ ---
HPI-Injury
General
Chief Complaint: Skin Problem
Source: patient
Exam Limitations: none
Time Seen by Provider: 12/31/23 07:11
Nursing documentation reviewed up to this point in time: agreed with
History of Present Illness-Injury
Initial Injury comments:
33 yo female here for 'sores on my earlobes are draining.' Presents with band aids over both earlobes.
Has numerous complaints mainly having to do with parasites, 'tiny black things,' 'tiny white things that look like arvae'l coming out of her skin.
She has been seen by two Dermatologists, Rheumatology, ID, ENT Dr. Hamilton had sinus CT scheduled for sinus scope in 6 days, Pulmonology for 'unusual sputum' sputum culture pending.
Two weeks ago seen by Infectious Disease in [place] who did lab work, w/u for lupus, no results yet, is going to call today for follow up appointment.
Thinks she has 'nasal myasis from a fruit fly,' or 'phorid flies,' lesions showing up in different areas, of face, chest and ears.
Has a multitude of pictures on her phone of tiny things that she has picked off of her skin past several weeks.
At one point saw PCP because of concerned for tapeworm and took Praziquantel, her stool was found to be negative.
She has been given treatment for lice for constant itching of scalp.
She was seen here on 12/24 with cellulitis of both feet that had been going on for the past several months prior, this is improving with prescribed antibiotics
Past History
Past History
ED Past Medical History: Psychiatric
ED Past Surgical History: Orthopedic
Patient has exhibited threatening behavior?: No
PSI?: No
Social History
Tobacco: Vaping
Alcohol: Occasional
Drug: None
Personal: Single
Living: alone
Employment: Employed
Review of Systems
Review of Systems
Allergies reviewed?: Yes
All Other Systems: ROS reviewed and negative except as documented in HPI and ROS
Constitutional: Denies fever
Respiratory: Denies trouble breathing
Cardiac: Denies chest pain
ABD/GI: Denies abdominal pain, nausea, vomiting or diarrhea
Musculoskeletal: Reports no symptoms
Skin: Reports other (Both feet erythematous but much improved on the antibiotics. Concern for parasites in and on her skin)
Neurological: Denies headache
Psychiatric: Reports anxiety (About skin findings)
Phy Exam
Physical Exam
Physical Exam:
GENERAL: No acute distress. A&Ox3.
CONSTITUTIONAL: Afebrile.
EYES: PERRL, conjunctivae normal
Neck: Supple
ENMT: moist mucus membranes, Pharynx nl
RESPIRATORY: Regular respirations, nonlabored, lungs clear.
CARDIOVASCULAR: Regular rate and rhythm, no murmurs, no rubs.
GI: Soft, nontender, normal BS
MUSCULOSKELETAL: Moves with ease. Well perfused.
SKIN: Warm, dry, pink. Both feet with dry mildly wrinkled, erythematous skin and +1-2 swelling R>L but pt states improving. Right 5th toe wound healed. No open areas on feet. Hands are without lesions. Bandaids removed from each earlobe, lobes are
without swelling, redness, drainage. 3 mm round dry, lesion left lobe with mild scab covering. Skin is dry with mild powdery flaking both external ear. TMs and ear canals normal.
PSYCH: Anxious mood and affect. Well kept, interactive and appropriate
NEUROLOGIC: Awake, alert and oriented. No focal neurological deficits
Sepsis
Sepsis Screening
Sepsis Assessment: Sepsis Ruled Out
Sepsis Screen
Sepsis Screen: Sepsis Ruled Out
Date: 01/01/24
Time: 16:02
Course
Vital Signs
Initial and Last Documented VS:
Initial Vital Signs
Temp Pulse Resp BP Pulse Ox
98.1 F 84 19 119/84 96
12/31/23 05:56 12/31/23 05:56 12/31/23 05:56 12/31/23 05:56 12/31/23 05:56
Last Documented Vital Signs
Temp Pulse Resp BP Pulse Ox
98 F 96 14 103/68 100
12/31/23 08:00 12/31/23 08:00 12/31/23 08:00 12/31/23 08:00 12/31/23 08:14
MDM/Problems Addressed
MDM/Problems Addressed:
33 yo female here for 'sores on my earlobes are draining.' Presents with band aids over both earlobes.
Has numerous complaints mainly having to do with parasites, 'tiny black things,' 'tiny white things that look like larvae' coming out of her skin.
She has been seen by two Dermatologists, Rheumatology, ID, ENT Dr. Hamilton had sinus CT scheduled for sinus scope in 6 days, Pulmonology for 'unusual sputum' sputum culture pending.
Two weeks ago seen by Infectious Disease in [place] who did lab work, w/u for lupus, no results yet, is going to call today for follow up appointment.
Thinks she has 'nasal myasis from a fruit fly,' or 'phorid flies,' lesions showing up in different areas, of face, chest and ears.
Has a multitude of pictures on her phone of tiny things that she has picked off of her skin past several weeks (they look like tiny pieces of dry skin)
At one point saw PCP because of concerned for tapeworm and took Praziquantel, her stool was found to be negative.
She has been given treatment for lice for constant itching of scalp.
She was seen here on 12/24 with cellulitis of both feet that had been going on for the past several months prior, this is improving with prescribed antibiotics
Dressings removed from earlobes. No redness, swelling, drainage. skin is dry, mildly flaky
When discussed that the skin of her outer ears has nothing worrisome, she pulled out her phone and showed me numerous pictures of things she picked off her skin thinking they were parasites, larvae.
She states she sent pictures to ground support equipment assembler to see if he could identify.
There is nothing acutely abnormal in or about her ears. She was reassured of this.
Other than reassurance, nothing to do medically at this point
She will follow-up with her infectious disease doctor and other specialists
She is pleasant and understands nothing to be done at this time.
*Critical Care Note
Total Time (30-74mins, 75-104mins- exclusive of procedures): Not Applicable
ED Attending Note
-
Portions of this chart may have been created with voice recognition software.� Occasional wrong word or��sound alike� substitutions may have occurred due to the inherent limitations of voice recognition software.
Discharge Plan
Departure
Patient Disposition: Home (Routine Discharge)
Date of Disposition: 12/31/23
Time of Disposition: 07:55
Patient with high blood pressure during this ER visit?: No
Condition: Good
Discharge Problem:
Disorder of left ear lobe, Disorder of right ear lobe
Prescriptions:
No Action
clindamycin HCl 300 mg Capsule
300 mg PO Q12H
Patient Comments:
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
Linzess 145 mcg Capsule
145 mcg PO DAILYPRN PRN (Reason: constipation)
cyanocobalamin (vitamin B-12) 1,000 mcg Tablet
1,000 mcg PO DAILY
Theragen Tablet
1 tab PO DAILY
magnesium hydroxide [Milk of Magnesia] 400 mg/5 mL Suspension
2,400 mg PO DAILYPRN PRN (Reason: constipation)
ferrous sulfate 325 mg (65 mg iron) Tablet
325 mg PO DAILY
omega 7-ehn-rsm-fish oil [Fish Oil] 1,000 mg (120 mg-180 mg) Capsule
1 cap PO DAILY
ashwagandha extract 500 mg Capsule
500 mg PO DAILY
azithromycin 250 mg tablet
250 mg PO DAILY Qty: 6 0RF
Rx Instructions:
Take 2 tablets day 1, then 1 tablet daily for 4 days.
fluticasone propionate [Flonase Allergy Relief] 50 mcg/actuation spray,suspension
2 spray intranasal DAILY Qty: 16 0RF
doxycycline hyclate 100 mg tablet
100 mg PO BID 7 Days Qty: 14 0RF
cephalexin 500 mg capsule
500 mg PO Q8H 7 Days Qty: 21 0RF
methylprednisolone [Medrol (Elvis)] 4 mg tablets,dose pack
See Rx Instructions .ROUTE .COMPLEX Qty: 21 0RF
Rx Instructions:
orally per package directions
Referrals:
Jenna Waite CRNP [Family Provider] -
Shayla Lloyd MD [Active] - Next open appointment
Activity Restrictions/Additional Instructions:
As we discussed, keep your upcoming appointments, call today to make follow up appointment with your Infectious Disease doctor.
The ear lobes are dry, mildly scaly due to dry skin. There are no open wounds, nothing to culture. No significant swelling, redness, no sign of infection at this time.
I have provided you with the name of an eye doctor to use if needed.
Interventions
Interventions:
*Risk Screen - Suicide Last Done: 12/31/23 05:56
*General Assessment Last Done: 12/31/23 05:56
*Neglect/Abuse Screening Last Done: 12/31/23 05:56
ED- Fall Risk Assessment Last Done: 12/31/23 08:14
*ED COVID-19 Vaccine History Last Done: 12/31/23 05:56
*Nursing Disposition Last Done: 12/31/23 08:14
ED-Skin Assessment Last Done: 12/31/23 08:12
Discharge Date and Time
Discharge Date/Time: 12/31/23 08:16
Print Language: TELUGU
== END 2023-12-31 08:16 | disposition home or self-care (01) ==
LOC: EMR 05:53
PROVIDERS: EMERGENCY PHYSICIAN Emergency Medicine; FAMILY PHYSICIAN Nurse Practitioner
DX: H61.93 Disorder of external ear, unspecified, bilateral (principal); L29.9 Pruritus, unspecified; L53.9 Erythematous condition, unspecified; F17.290 Nicotine dependence, other tobacco product, uncomplicated
CPT/HCPCS: 99281

== ENCOUNTER 2024-01-16 09:57 | Emergency (ER) | payer SELFPAY ==
[2024-01-16 10:06] VITALS: BP 134/93
--- NOTE | 2024-01-16 11:49 | ED.GENMED ---
History of Present Illness
General
Chief Complaint: Skin Problem
Source: patient
Time Seen by Provider: 01/16/24 11:30
History of Present Illness
History of Present Illness:
Is a 33-year-old female who presents with concern that her bra caught her right earlobe and made a bleed. She states she had a cyst on her earlobe for some time. Her history is somewhat difficult as she is providing history from multiple different
doctors and multiple different lab reports including sputum cultures, 'fungus growth ', skin disorders, concerns for parasites. The patient states that after her cyst pop she felt dizzy and had pain all over her body. She is worried she has a
diffuse fungal infection
Past History
Past History
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
ED Past Surgical History: Orthopedic
Patient has exhibited threatening behavior?: No
PSI?: No
Social History
Tobacco: Vaping
Alcohol: Occasional
Drug: None
Personal: Single
Living: alone
Employment: Employed
Phy Exam
Physical Exam
Physical Exam:
CONSTITUTIONAL Vital signs reviewed, Patient alert and oriented to person, place and time. Well-appearing
HEAD atraumatic, normocephalic.
EYES eyelids normal to inspection, Extraocular muscles intact, Conjunctiva normal, Sclera normal.
ENT chronically split right earlobe. There is some induration to the tip of the lobe and there is dried blood surrounding. There is a very small open wound. There is no fluctuance, no redness, no pus. Pinna otherwise normal
NECK normal range of motion, Trachea midline, no jugular venous distention.
RESP no respiratory distress
BACK No obvious deformities
UPPER EXTREMITY Gross Range of motion normal, gross motor strength normal
LOWER EXTREMITY Gross range of motion normal, Gross motor strength normal
NEURO Speech normal, No focal motor deficits include, [place] coma scale 15, Memory normal, Cranial Nerves intact to screening exam.
SKIN Skin warm, dry, and normal in color. Of note, the patient has dirt under fingernails and toenails. She does have an open excoriated wound to the top of her right foot. She has no socks on and wearing clogs
Course
Vital Signs
Initial and Last Documented VS:
Initial Vital Signs
Temp Pulse Resp BP Pulse Ox
98 F 95 16 134/93 100
01/16/24 10:06 01/16/24 10:06 01/16/24 10:06 01/16/24 10:06 01/16/24 10:06
Last Documented Vital Signs
Temp Pulse Resp BP Pulse Ox
98 F 95 16 134/93 100
01/16/24 10:06 01/16/24 10:06 01/16/24 10:06 01/16/24 10:06 01/16/24 10:06
MDM/Problems Addressed
MDM/Problems Addressed:
Open right earlobe wound
*Pulse Oximetry
Patient hypoxic: no
*Critical Care Note
Total Time (30-74mins, 75-104mins- exclusive of procedures): Not Applicable
Data Reviewed
Source: patient
Patient Management
Escalation/DeEscalation of care consider admission/obs:
Very odd affect. Patient became somewhat contentious after discussing local wound management. The patient states she is convinced there is a whole body infection. She was videotaping a piece of fuzz on the floor and was concerned about it. She
is able to be redirected but she is not happy with the fact that we are not testing her for systemic fungal infection. Previous lab results reviewed. She has tested positive in the past for methamphetamines. Her clinical presentation is
consistent with methamphetamine use but currently patient denies drug abuse. There is no indication for more systemic workup. Local wound care and discharge. Offered topical antibiotic ointment but the patient refuses. She states she will
follow-up with her specialist which I think is reasonable
ED Attending Note
-
Portions of this chart may have been created with voice recognition software.� Occasional wrong word or��sound alike� substitutions may have occurred due to the inherent limitations of voice recognition software.
Discharge Plan
Departure
Patient Disposition: Home (Routine Discharge)
Date of Disposition: 01/16/24
Time of Disposition: 11:55
Patient with high blood pressure during this ER visit?: Yes
Discharge Problem:
Earlobe wound
Instructions: Wound Care (DC)
Prescriptions:
No Action
clindamycin HCl 300 mg Capsule
300 mg PO Q12H
Patient Comments:
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
Linzess 145 mcg Capsule
145 mcg PO DAILYPRN PRN (Reason: constipation)
cyanocobalamin (vitamin B-12) 1,000 mcg Tablet
1,000 mcg PO DAILY
Theragen Tablet
1 tab PO DAILY
magnesium hydroxide [Milk of Magnesia] 400 mg/5 mL Suspension
2,400 mg PO DAILYPRN PRN (Reason: constipation)
ferrous sulfate 325 mg (65 mg iron) Tablet
325 mg PO DAILY
omega 7-tgg-dmg-fish oil [Fish Oil] 1,000 mg (120 mg-180 mg) Capsule
1 cap PO DAILY
ashwagandha extract 500 mg Capsule
500 mg PO DAILY
azithromycin 250 mg tablet
250 mg PO DAILY Qty: 6 0RF
Rx Instructions:
Take 2 tablets day 1, then 1 tablet daily for 4 days.
fluticasone propionate [Flonase Allergy Relief] 50 mcg/actuation spray,suspension
2 spray intranasal DAILY Qty: 16 0RF
doxycycline hyclate 100 mg tablet
100 mg PO BID 7 Days Qty: 14 0RF
cephalexin 500 mg capsule
500 mg PO Q8H 7 Days Qty: 21 0RF
methylprednisolone [Medrol ([place])] 4 mg tablets,dose pack
See Rx Instructions .ROUTE .COMPLEX Qty: 21 0RF
Rx Instructions:
orally per package directions
Referrals:
Jenna Waite CRNP [Family Provider] -
Activity Restrictions/Additional Instructions:
Keep wounds clean and dry. Please see your doctor or mailmaster in follow-up in the next 1 week. Return immediately for redness, drainage from the wound or any other concerns.
Interventions
Interventions:
*Risk Screen - Suicide Last Done: 01/16/24 10:06
*General Assessment Last Done: 01/16/24 10:06
*Neglect/Abuse Screening Last Done: 01/16/24 10:06
Discharge Date and Time
Print Language: ANDORRAN
== END 2024-01-16 12:10 | disposition home or self-care (01) ==
LOC: EMR 09:57
PROVIDERS: EMERGENCY PHYSICIAN Emergency Medicine; FAMILY PHYSICIAN Nurse Practitioner
DX: S01.301A Unspecified open wound of right ear, initial encounter (principal); X58.XXXA Exposure to other specified factors, initial encounter
CPT/HCPCS: 99282